=== PATIENT | male | born 1975 | race African-American/Black ===

== ENCOUNTER 2019-11-23 20:01 | Emergency (ER) | payer OTHER ==
[~2019-11-23] VITALS: Ht 170.2 cm; Wt 127.0 kg
[~2019-11-23 20:01] MED LIST: DEPAKOTE 250MG250 M1 PO; KEFLEX500 MG PO; KEPPRA 500 MG500 MG; NORCO 5-325 TA1 EACH PO; TORADOL 10 MG T10 MG PO; [UNRECOGNIZED DRUG - REMARK]
[2019-11-23] MEDS ORDERED: LIPITOR 10 MG10 M1 PO (20:11)
[2019-11-23] MEDS ORDERED: LISINOPRIL-HCT1 EAC2 PO (20:11)
[2019-11-23] MEDS ORDERED: HYDROCHLOROTHIA25 M2 PO (20:12)
[2019-11-23] MEDS ORDERED: VITAMIN D350 MC2 PO (20:12)
[2019-11-23 20:34] LABS: URINE BILIRUBIN NEGATIVE (Negative); URINE BLOOD NEGATIVE (Negative); URINE CLARITY CLEAR; URINE COLOR YELLOW; URINE GLUCOSE-RANDOM NEGATIVE (Negative); URINE KETONES NEGATIVE (Negative); URINE LEUKOCYTES NEGATIVE (Negative); URINE NITRITE NEGATIVE (Negative); URINE PROTEIN NEGATIVE (Negative); URINE UROBILINOGEN 0.2 E.U./dl (0.2-1.0)
[2019-11-23 20:36] LABS: ABSOLUTE BASOPHILS 0.1 thou/uL (0.0-0.2); ABSOLUTE EOSINOPHILS 0.1 thou/uL (0.0-0.7); ABSOLUTE MONOCYTES 0.8 thou/uL (0.0-1.2); ABSOLUTE NEUTROPHILS 4.9 thou/uL (1.6-8.1); BASOPHILS 0.8 %; EOSINOPHILS 0.6 %; HEMATOCRIT 43.3 % (42.0-52.0); LYMPHOCYTES 33.9 %; MCH 30.8 pg (26.0-34.0); MCHC 34.5 g/dL (28.0-37.0); MCV 89.1 fL (80.0-100.0); MPV 8.4 fl. (7.2-11.1); NUCLEATED RBCS 0 /100WBC; PLATELET COUNT* 267 thou/uL (150-400); POLYS 55.7 %; RBC 4.86 mil/uL (4.50-6.00); RDW-CV 13.4 % (10.5-14.5); WBC 8.9 thou/uL (4.0-11.0)
[2019-11-23 20:42] LABS: CALCIUM 9.1 mg/dL (8.5-10.1); CREATININE 1.5 mg/dL (0.6-1.3); POTASSIUM 4.3 mmol/L (3.5-5.1)
[2019-11-23 20:46] LABS: ALBUMIN 3.6 g/dL (3.4-5.0); TOTAL BILIRUBIN 0.4 mg/dL (<0.1-1.0); TOTAL PROTEIN 8.1 g/dL (6.4-8.2)
[2019-11-23] MEDS ORDERED: FLEXERIL PO (21:21)
[2019-11-23] MEDS ORDERED: FLOMAX0.4 MG PO (21:21)
[2019-11-23 21:40] VITALS: BP 138/74
== END 2019-11-23 21:41 | disposition home or self-care (01) ==
LOC: M.ERS 20:01
PROVIDERS: Physician Assistant
DX: S37.002A Unspecified injury of left kidney, initial encounter (principal); N13.30 Unspecified hydronephrosis; N13.4 Hydroureter; E66.01 Morbid (severe) obesity due to excess calories; F17.210 Nicotine dependence, cigarettes, uncomplicated; Z68.41 Body mass index [BMI] 40.0-44.9, adult; Z90.49 Acquired absence of other specified parts of digestive tract; X58.XXXA Exposure to other specified factors, initial encounter; Y93.89 Activity, other specified; Y92.89 Other specified places as the place of occurrence of the external cause; Y99.8 Other external cause status

== ENCOUNTER 2020-06-11 12:31 | Inpatient (IN) | payer OTHER ==
[~2020-06-11] VITALS: Ht 172.7 cm; Wt 122.5 kg
[~2020-06-11 12:31] MED LIST changes: +FLEXERIL PO; +FLOMAX0.4 MG PO; +HYDROCHLOROTHIA25 M2 PO; +LIPITOR 10 MG10 M1 PO; +LISINOPRIL-HCT1 EAC2 PO; +VITAMIN D350 MC2 PO
[2020-06-11 12:40] VITALS: BP 145/103
[2020-06-11 13:08] LABS: URINE BILIRUBIN NEGATIVE (Negative); URINE BLOOD NEGATIVE (Negative); URINE CLARITY CLEAR; URINE COLOR YELLOW; URINE GLUCOSE-RANDOM 3+ (Negative); URINE KETONES 1+ (Negative); URINE LEUKOCYTES-REFLEX NEGATIVE (Negative); URINE NITRITE-REFLEX NEGATIVE (Negative); URINE PROTEIN NEGATIVE (Negative); URINE SPECIFIC GRAVITY <= 1.005 (1.005-1.030); URINE UROBILINOGEN 0.2 E.U./dl (0.2-1.0)
[2020-06-11 13:19] LABS: ABSOLUTE BASOPHILS 0.1 thou/uL (0.0-0.2); ABSOLUTE LYMPHOCYTES 1.7 thou/uL (0.8-5.3); ABSOLUTE MONOCYTES 0.5 thou/uL (0.0-1.2); ABSOLUTE NEUTROPHILS 5.9 thou/uL (1.6-8.1); BASOPHILS 0.8 %; EOSINOPHILS 0.2 %; HEMATOCRIT 53.6 % (42.0-52.0); HEMOGLOBIN 18.3 gm/dL (14.0-18.0); LYMPHOCYTES 21.2 %; MCH 31.2 pg (26.0-34.0); MCHC 34.1 g/dL (28.0-37.0); MCV 91.6 fL (80.0-100.0); MONOCYTES 5.7 %; MPV 10.5 fl. (7.2-11.1); NUCLEATED RBCS 0 /100WBC; PLATELET COUNT* 157 thou/uL (150-400); POLYS 72.1 %; RBC 5.86 mil/uL (4.50-6.00); RDW-CV 13.7 % (10.5-14.5); WBC 8.2 thou/uL (4.0-11.0)
[2020-06-11 13:32] LABS: CALCIUM 9.4 mg/dL (8.5-10.1); CREATININE 1.8 mg/dL (0.6-1.3)
[2020-06-11 13:34] LABS: ALBUMIN 3.8 g/dL (3.4-5.0); TOTAL BILIRUBIN 0.8 mg/dL (<0.1-1.0); TOTAL PROTEIN 8.2 g/dL (6.4-8.2)
[2020-06-11 14:33] LABS: PCO2 VENOUS 57.6 mmHg (41.0-51.0)
[2020-06-11 16:17] VITALS: BP 135/75
[2020-06-11 17:10] LABS: CHOLESTEROL 147 mg/dL (<200); HDL CHOLESTEROL 24 mg/dL (>40); LDL CHOLESTEROL 67 mg/dL (<100); SERUM ASSESSMENT Clear; TC:HDL 6.1 Ratio (Not establshd); TRIGLYCERIDE 280 mg/dL (<150); VLDL 56 mg/dL (<40)
--- NOTE | 2020-06-11 19:17 | NUR ---
PATIENT RESTING IN BED. VSS. GLUCOSE CHECKS Q4H WITH HIGH DOSE SLIDING SCALE.
[2020-06-11 19:50] VITALS: BP 123/76
[2020-06-12] VITALS (7 sets, daily range): BP systolic 79–129; BP diastolic 40–74
[2020-06-12 00:53] LABS: BE -2.3 mmol/L (-2 to +3); PCO2 35.4 mmHg (35.0-45.0); pH 7.405 (7.340-7.450)
[2020-06-12 00:54] LABS: PO2 55.8 mmHg (75.0-100.0)
[2020-06-12 01:27] LABS: CALCIUM 9.3 mg/dL (8.5-10.1); CREATININE 2.3 mg/dL (0.6-1.3); POTASSIUM 3.1 mmol/L (3.5-5.1)
[2020-06-12 01:32] LABS: ALBUMIN 3.4 g/dL (3.4-5.0); TOTAL BILIRUBIN 0.4 mg/dL (<0.1-1.0); TOTAL PROTEIN 6.8 g/dL (6.4-8.2)
[2020-06-12 01:39] LABS: ABSOLUTE BASOPHILS 0.1 thou/uL (0.0-0.2); ABSOLUTE LYMPHOCYTES 3.7 thou/uL (0.8-5.3); ABSOLUTE NEUTROPHILS 9.1 thou/uL (1.6-8.1); BASOPHILS 0.5 %; EOSINOPHILS 0.3 %; HEMATOCRIT 46.1 % (42.0-52.0); LYMPHOCYTES 26.4 %; MCH 30.9 pg (26.0-34.0); MCHC 34.3 g/dL (28.0-37.0); MCV 90.2 fL (80.0-100.0); NUCLEATED RBCS 0 /100WBC; PLATELET COUNT* 177 thou/uL (150-400); POLYS 65.8 %; RBC 5.11 mil/uL (4.50-6.00); RDW-CV 13.4 % (10.5-14.5); WBC 13.9 thou/uL (4.0-11.0)
[2020-06-12 01:43] LABS: HEMOGLOBIN 15.8 gm/dL (14.0-18.0)
--- NOTE | 2020-06-12 07:07 | NUR ---
PT BP DECREASED THROUGHOUT THE NIGHT, PORVIDER NOTIFED ORDERS GIVEN. PT MAP WAS 60 OR GREATER. PT ABLE TO AMBULATE IN ROOM WITHOUT ISSUSE. PT WAS LETHARGIC AT TIMES, PROVIDER NOTIFED ORDERS RECIEVED.
--- NOTE | 2020-06-12 13:43 | NUR ---
CM SPOKE TO THE PT TO DISCUSS HIS HOME SITUATION, DISCHARGE PLANNING, ANS TO INFORM OF THE ROLE OF CM. PT A&O, ACTIVE AND INDEPENDENT WITH ADL'S. PT RESIDES AT HOME WITH SPOUSE. PT USES BIPAP AT [facility], BUT NO OTHER DME. NO D/C PLANNING NEEDS ANTICIPATED AT THIS TIME. CM WILL REMAIN AVAILABLE TO ASSIST AND FOLLOW NEEDED.
--- NOTE | 2020-06-12 13:51 | EKG ---
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
--- NOTE | 2020-06-12 17:42 | NUR ---
patient resting in bed. accuchecks q4h with sliding scale insulin. nephrology consult today. post void bladder scan of 100ml and 70 ml today.
[2020-06-13 03:53] VITALS: BP 118/78
[2020-06-13 05:11] LABS: ABSOLUTE EOSINOPHILS 0.1 thou/uL (0.0-0.7); ABSOLUTE LYMPHOCYTES 3.5 thou/uL (0.8-5.3); ABSOLUTE MONOCYTES 0.4 thou/uL (0.0-1.2); ABSOLUTE NEUTROPHILS 3.2 thou/uL (1.6-8.1); BASOPHILS 0.4 %; EOSINOPHILS 0.9 %; HEMATOCRIT 44.5 % (42.0-52.0); HEMOGLOBIN 15.3 gm/dL (14.0-18.0); LYMPHOCYTES 48.7 %; MCH 30.2 pg (26.0-34.0); MCHC 34.5 g/dL (28.0-37.0); MCV 87.8 fL (80.0-100.0); MONOCYTES 5.3 %; MPV 9.6 fl. (7.2-11.1); NUCLEATED RBCS 0 /100WBC; PLATELET COUNT* 136 thou/uL (150-400); POLYS 44.7 %; RBC 5.07 mil/uL (4.50-6.00); RDW-CV 13.6 % (10.5-14.5); WBC 7.2 thou/uL (4.0-11.0)
[2020-06-13 05:50] LABS: ALBUMIN 2.8 g/dL (3.4-5.0); MAGNESIUM 1.8 mg/dL (1.8-2.4); TOTAL BILIRUBIN 0.6 mg/dL (<0.1-1.0); TOTAL PROTEIN 6.1 g/dL (6.4-8.2)
[2020-06-13 05:54] LABS: POTASSIUM 2.8 mmol/L (3.5-5.1)
--- NOTE | 2020-06-13 06:58 | NUR ---
RECEIVED REPORT AND ASSUMED CARE AT 2330. VSS. CARDIAC MONITORING IN PLACE. PT RESTING IN BED, WEARING CPAP. UP AD BEATRIZ IN ROOM. BED LOCKED IN LOWEST POSITION, CALL LIGHT WITHIN REACH. ROUNDING COMPLETED AND ALL NEEDS MET. PT LAB RESULTS RECEIVED K+ 2.8. COMMUNICATED TO PHYSICIAN, REPLACEMENT PROTOCOL FOLLOWED.
[2020-06-13 07:41] VITALS: BP 113/72
--- NOTE | 2020-06-13 09:11 | NUR ---
ASSUMED CARE OF PT THIS AM [facility]OUND 0715[facility], TRACING SR WITH 1ST DEGREE- UPON ASSESSMENT PT NOTED TO BE RESTING IN BED WITH CPAP- PT A&O X4- CONT OF B/B- UP AD-BEATRIZ IN ROOM, STEADY GAIT NOTED- LCTA, RESP EVEN AND UN-LABORED- VSS, O2 SAT 98% ON RA- ABD SOFT/ROUND/NON-TENDER, BS X4 QUADS- LAST BM REPORTED 06/12/20- IV NOTED TO RIGHT AC INTACT, IVF INFUSSING PRESCRIBED, 2ND IV NOTED TO LEFT AC INTACT AND SL- K+ NOTED AT 2.8 THIS AM AND IS CURRENTLY BEING REPLACED PER PROTOCOL- FAIR PO INTAKE NOTED THIS AM WITH BREAKFAST, BS MONITORED ORDERED WITH SSI PRESCRIBED- PT DENIES ANY C/O PAIN/DISCOMFORT AT THIS TIME- CALL LIGHT AND PERSONAL BELONGINGS WITH IN REACH- PT MAKES NEEDS KNOWN- ALL NEEDS MET AT THIS TIME-WCTM
[2020-06-13 11:30] VITALS: BP 123/69
[2020-06-13 16:00] VITALS: BP 133/83
[2020-06-13 20:00] VITALS: BP 127/90
[2020-06-13 23:58] VITALS: BP 119/71
[2020-06-14 04:58] VITALS: BP 109/66
[2020-06-14 05:01] LABS: HEMATOCRIT 42.4 % (42.0-52.0); HEMOGLOBIN 14.8 gm/dL (14.0-18.0); MCH 30.9 pg (26.0-34.0); MCV 88.4 fL (80.0-100.0); MPV 9.7 fl. (7.2-11.1); RBC 4.8 mil/uL (4.50-6.00); RDW-CV 13.7 % (10.5-14.5); WBC 5.4 thou/uL (4.0-11.0)
[2020-06-14 05:14] LABS: ALBUMIN 2.8 g/dL (3.4-5.0); CALCIUM 8.1 mg/dL (8.5-10.1); CREATININE 0.8 mg/dL (0.6-1.3); POTASSIUM 3.5 mmol/L (3.5-5.1); TOTAL BILIRUBIN 0.6 mg/dL (<0.1-1.0); TOTAL PROTEIN 6.1 g/dL (6.4-8.2)
[2020-06-14 07:27] VITALS: BP 134/81
--- NOTE | 2020-06-14 08:16 | NUR ---
Alert and oriented x 4. He is up independently in the room. He didn't request anything for pain. He did have some sliding scale insulin. He is quiet. He did sleep well.
--- NOTE | 2020-06-14 08:44 | NUR ---
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, TRACING- UPON ASSESSMENT PT NOTED TO BE RESTING IN BED- PT A&O X4- CONT OF B/B- UP AD-BEATRIZ IN ROOM, STEADY GAIT NOTED- LCTA, RESP EVEN AND UN-LABORED- VSS, O2 SAT 96% ON RA- ABD SOFT/ROUND/NON-TENDER, BS X4 QUADS- LAST BM REPORTED 06/13/20- IV NOTED TO RIGHT AC INTACT WITH IVF INFUSSING PRESCRIBED, IV TO LEFT AC INTACT AND SL- GOOD PO INTAKE NOTED THIS AM WITH BREAKFAST- BS MONITORED ORDERED WITH PO AND SSI PRESCRIBED- BS EDUCATION AND TEACHING GIVEN, PT ABLE TO DEMONSTRATE EFFECTIVELY DRAWING UP INSULIN AND GIVING TO SELF- PT DENIES ANY C/O PAIN/DISCOMFORT AT THIS TIME- CALL LIGHT AND PERSONAL BELONGINGS WITH IN REACH- PT MAKES NEEDS KNOWN- ALL NEEDS MET AT THIS TIME-WCTM
[2020-06-14] MEDS ORDERED: METFORMIN HCL500 M3 PO (09:33)
[2020-06-14] MEDS ORDERED: GLYBURIDE 5 MG T5 M1 PO (09:33)
[2020-06-14] MEDS ORDERED: GVOKE HYPO1 MG/0.21 SUBQ (09:33)
[2020-06-14 09:38] VITALS: BP 134/81
[2020-06-14] MEDS ORDERED: LANTUS100 UNIT/M SUBQ (09:41)
[2020-06-14] MEDS ORDERED: HUMALOG100 UNIT/1 SUBQ (09:46)
[2020-06-14] MEDS ORDERED: ALCOHOL PADS1 EAC1 TOP (09:50)
[2020-06-14] MEDS ORDERED: ACCU-CHEK1 EACH SUBQ (09:50)
[2020-06-14] MEDS ORDERED: INSULIN SYRING1 EA10 SUBQ (09:50)
--- NOTE | 2020-06-17 09:54 | CON ---
[address] [address] CONSULTATION Name: DARREN RICHEY Merlin GUILLEN Room: [address] IN [place].Shannan.#: [id number] Admission: 06/11/20 Attend Phys: Jannie Nelson MD Discharge: 06/14/20 Date of : 73 Report #: [id number] THIS REPORT FOR: //name// cc: [facility] - Clinic physician unknown [facility] Clinic physician unknown ~ THIS REPORT FOR: //name// CC: [facility] unknown CLINIC Jannie Nelson DATE OF SERVICE: 06/12/2020 NEPHROLOGY CONSULTATION CONSULTING PHYSICIAN: Jannie Nelson MD REASON FOR NEPHROLOGY CONSULTATION: Worsening kidney function, acute kidney injury on likely chronic kidney disease. REASON FOR ADMISSION: Hyperosmolar hyperglycemic state. HISTORY OF PRESENT ILLNESS: This is a 44-year-old -Indian male with past medical history of hypertension and possibly chronic kidney disease as well, which the patient is not aware of, came in with excessive thirst, 2-3 week history of weight loss, excessive hunger, excessive urination. He had no idea that he had diabetes. His blood sugar was 953. He was given insulin and his sugars are better this morning. His creatinine was at 1.8 yesterday, it is at 2.3 today. He intermittently takes NSAIDs, takes about couple of tablets of Aleve, maybe once a month or so. His hemoglobin A1c is 14 and his creatinine was 1.5 back in November. His blood pressure was okay when he came in, but this morning, blood pressure has been running low 70s-80 systolic and he is getting IV fluid boluses. He has been getting IV fluids since he came in yesterday. He does take hydrochlorothiazide at home and he said he stopped taking lisinopril about a month ago because it was causing him to swell and there is no family history of kidney disease that he knows of, his father is diabetic though. He is just feeling tired this morning. ALLERGIES: No known allergies. REVIEW OF SYSTEMS: As mentioned in history of present illness, otherwise 10-point review of systems are negative. PAST MEDICAL HISTORY: There is no history of any kidney stones or kidney problems that he knows of, but his creatinine was 1.5 back in November of this year, so I am suspecting he has chronic kidney [place] [address] CONSULTATION Name: DARREN RICHEY JR Room: [address]#: [id number] Admission: 06/11/20 Attend Phys: Jannie Nelson MD Discharge: 06/14/20 Date of : 73 Report #: [id number] untreated, undiagnosed diabetes; hypertension. He also has history of seizures, morbid obesity. PAST SURGICAL HISTORY: Umbilical hernia repair, cholecystectomy. FAMILY HISTORY: Diabetes in father. No history of any kidney disease in the family. SOCIAL HISTORY: He lives at home with his . Does not smoke or drink alcohol or use illicit drugs. HOME MEDICATIONS: Include Depakote, Keppra, hydrochlorothiazide, atorvastatin and cholecalciferol. PHYSICAL EXAMINATION: VITAL SIGNS: Blood pressure is 179/46 this morning, respiratory rate is 18, pulse rate 67, temperature 36.7, and pulse ox is 92% on 3 liters of oxygen by nasal cannula. GENERAL: He is drowsy, but easily arousable and oriented x 3. HEAD AND EYES: Atraumatic and normocephalic. Conjunctivae normal. EARS, NOSE, AND THROAT: Normal ears and nose. Mucous membranes are slightly dry. NECK: There was no JVD. CHEST: Bilaterally clear to auscultation anteriorly. No crackles heard or wheezing. CARDIOVASCULAR: S1, S2 normal. No murmurs. ABDOMEN: Soft, nondistended, obese. Bowel sounds are present. EXTREMITIES: Lower extremities, there is no lower extremity edema. NEUROLOGICAL FUNCTION: Grossly intact. PSYCHIATRIC: Mood and affect seems to be normal. LABORATORY DATA: WBC 13.9, hemoglobin is 15.8. Urine had 1+ ketones and 3+ glucose. Sodium was 136 this morning, potassium was 3.1 this morning, chloride 96 and creatinine 2.3, and other labs are reviewed. IMAGING: Renal ultrasound was reviewed. ASSESSMENT: 1. Acute kidney injury on likely chronic kidney disease stage 3A. Likely, his baseline creatinine is around 1.5, the patient's admission creatinine was 1.8. Urinalysis unremarkable except for ketones and glucose. Renal ultrasound unremarkable. Bladder was empty. Creatinine has gone up to 2.3 this morning likely because of combination of volume depletion and hypotension. He does take hydrochlorothiazide at home and he was getting dehydrated, so hydrochlorothiazide also contributed to worsening of his kidney function. 2. Hyponatremia, which is pseudohyponatremia in the setting of hyperglycemia, [address] [address] CONSULTATION Name: DARREN RICEHY JR Room: [address] IN .Shannan.#: [id number] Admission: 06/11/20 Attend Phys: Jannie Nelson MD Discharge: 06/14/20 Date of : 73 Report #: [id number] corrected admission sodium was 143 actually. 3. Hypokalemia in the setting of polyuria and correction of hyperglycemia, being replaced per primary team. 4. Anion gap metabolic acidosis with metabolic alkalosis. 5. He does have history of seizures. He is on antiepileptic medication and primary team is treating that. 6. Hypertension. Blood pressure is actually running low this morning and he is getting boluses of fluids. Antihypertensives are on hold. 7. Undiagnosed diabetes, hyperosmolar ketotic hyperglycemic state. 8. Morbid obesity. PLAN: 1. Replace potassium. 2. His bladder was empty on his renal ultrasound, strict I's and O's. 3. Try to avoid hypotension and he is getting IV fluids boluses right now because his blood pressure is too low, he might need to be started on pressors. 4. Continue to hold hydrochlorothiazide and other nephrotoxic agents. 5. Management of hyperglycemia as per primary team. Thank you for this consultation. We will continue to follow with you. Check morning labs. Discussed with the patient's nurse as well as the patient. <ELECTRONICALLY SIGNED> By: Valeria Keller MD 06/17/20 0954 0926 1020Valeria Keller MD /nt
== END 2020-06-14 11:49 | disposition home or self-care (01) | DRG 637 ==
LOC: M.ERS 12:31 → M.TBA-ER 14:22 → M.2W 14:22
PROVIDERS: Internal Medicine; Physician Assistant; ADMIT Internal Medicine; ATTEND Internal Medicine
PROC: 5A09357 Assistance with Respiratory Ventilation, Less than 24 Consecutive Hours, Continuous Positive Airway Pressure (ICD-10-PCS; principal; 2020-06-13)
DX: E11.00 Type 2 diabetes mellitus with hyperosmolarity without nonketotic hyperglycemic-hyperosmolar coma (NKHHC) (principal); N17.0 Acute kidney failure with tubular necrosis; J96.01 Acute respiratory failure with hypoxia; Z68.41 Body mass index [BMI] 40.0-44.9, adult; E87.1 Hypo-osmolality and hyponatremia; E11.65 Type 2 diabetes mellitus with hyperglycemia; E66.01 Morbid (severe) obesity due to excess calories; I10 Essential (primary) hypertension; E87.6 Hypokalemia; I95.9 Hypotension, unspecified; Z20.828 Contact with and (suspected) exposure to other viral communicable diseases; Z90.49 Acquired absence of other specified parts of digestive tract; Z79.899 Other long term (current) drug therapy; Z87.891 Personal history of nicotine dependence; Z23 Encounter for immunization

== ENCOUNTER 2020-10-06 17:47 | Emergency (ER) | payer OTHER ==
[~2020-10-06] VITALS: Ht 172.7 cm; Wt 129.3 kg
[~2020-10-06 17:47] MED LIST changes: +ACCU-CHEK1 EACH SUBQ; +ALCOHOL PADS1 EAC1 TOP; +GLYBURIDE 5 MG T5 M1 PO; +GVOKE HYPO1 MG/0.21 SUBQ; +HUMALOG100 UNIT/1 SUBQ; +INSULIN SYRING1 EA10 SUBQ; +LANTUS100 UNIT/M SUBQ; +METFORMIN HCL500 M3 PO
[2020-10-06] MEDS ORDERED: ZPAK PO (19:04)
[2020-10-06 19:20] VITALS: BP 168/89
== END 2020-10-06 19:27 | disposition home or self-care (01) ==
LOC: M.ERS 17:47
DX: U07.1 COVID-19 (principal); J18.9 Pneumonia, unspecified organism; I10 Essential (primary) hypertension; F17.210 Nicotine dependence, cigarettes, uncomplicated; Z90.49 Acquired absence of other specified parts of digestive tract; Z79.899 Other long term (current) drug therapy

== ENCOUNTER 2020-10-08 15:03 | Emergency (ER) | payer OTHER ==
[~2020-10-08] VITALS: Ht 172.7 cm; Wt 129.3 kg
[~2020-10-08 15:03] MED LIST changes: +ZPAK PO
[2020-10-08 15:36] LABS: ABSOLUTE LYMPHOCYTES 2.3 thou/uL (0.8-5.3); ABSOLUTE MONOCYTES 0.3 thou/uL (0.0-1.2); ABSOLUTE NEUTROPHILS 3.6 thou/uL (1.6-8.1); BASOPHILS 0.4 %; EOSINOPHILS 0.1 %; HEMATOCRIT 44.7 % (42.0-52.0); HEMOGLOBIN 15.1 gm/dL (14.0-18.0); LYMPHOCYTES 36.9 %; MCH 30.2 pg (26.0-34.0); MCHC 33.7 g/dL (28.0-37.0); MCV 89.6 fL (80.0-100.0); MONOCYTES 5.3 %; MPV 8.6 fl. (7.2-11.1); NUCLEATED RBCS 0 /100WBC; PLATELET COUNT* 156 thou/uL (150-400); POLYS 57.3 %; RBC 4.99 mil/uL (4.50-6.00); WBC 6.3 thou/uL (4.0-11.0)
[2020-10-08 15:51] LABS: APTT 28.7 Seconds (25.0-31.3); PROTIME 10.9 Seconds (9.20-11.50)
[2020-10-08 16:00] LABS: CALCIUM 8.8 mg/dL (8.5-10.1); CREATININE 1.2 mg/dL (0.6-1.3); POTASSIUM 3.3 mmol/L (3.5-5.1)
[2020-10-08 16:06] LABS: ALBUMIN 3.1 g/dL (3.4-5.0); TOTAL BILIRUBIN 0.5 mg/dL (<0.1-1.0); TOTAL PROTEIN 7.9 g/dL (6.4-8.2)
--- NOTE | 2020-10-08 16:06 | EKG ---
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[place] : 1975 Requested By: Kenny Germain Order Number: [id number] MD: Vargas Carranza Measurements Intervals [place] Rate: 74 P: 26 [place]: 149 QRS: 44 QRSD: 79 T: 21 QT: 381 QTc: 423 Interpretive Statements Sinus rhythm Compared to ECG 06/11/2020 13:54:40 T-wave abnormality no longer present Electronically Signed On 10-08-2020 16:06:26 BUSINESS PLANNER by Vargas Carranza [email or web address] <ELECTRONICALLY SIGNED> By: Vargas Carranza MD, [facility] 10/08/20 1606 1515 14 Vargas Carranza MD, [facility] /EPI
[2020-10-08] MEDS ORDERED: DEXAMETHASONE 44 M1 PO (16:24)
[2020-10-08 16:40] VITALS: BP 121/73
== END 2020-10-08 16:42 | disposition home or self-care (01) ==
LOC: M.ERS 15:03
PROVIDERS: Family Medicine
DX: U07.1 COVID-19 (principal); E66.01 Morbid (severe) obesity due to excess calories; F17.210 Nicotine dependence, cigarettes, uncomplicated; Z79.899 Other long term (current) drug therapy; Z79.4 Long term (current) use of insulin; Z98.890 Other specified postprocedural states; Z90.49 Acquired absence of other specified parts of digestive tract